=== PATIENT | female | born 1950 | race Caucasian/White ===

== ENCOUNTER → 2019-04-12 | Outpatient (CLI) | payer MEDICARE, OTHER ==
--- NOTE | 2019-04-12 16:10 | RAD ---
Examination: 1. Right diagnostic mammogram 2. Right targeted breast ultrasound. INDICATION: 68-year-old woman recalled from screening for right breast calcifications. COMPARISON: Bilateral screening mammogram of 03/28/2019 TECHNIQUE: Magnification views of the right breast in the CC projection were obtained along with a full-field right ML view and magnification MLO views of the right breast were obtained. Computer-aided detection was utilized. Targeted ultrasound of the upper inner quadrant right breast was subsequently pursued. FINDINGS: Right mammogram: The right breast is heterogeneously dense. Additional views of the right breast including magnification views confirm the presence of fine linear branching pleomorphic calcifications in the upper inner quadrant right breast spanning a 2.2 cm craniocaudal and 2.8 cm mediolateral extent and extending at least 4 cm anteroposterior. These are highly suggestive of malignancy. Biopsy is indicated. However, additional imaging by targeted right breast ultrasound is required to assess for lymphadenopathy and for any associated solid masses obscured by the heterogeneously dense breast parenchyma. Right breast ultrasound: Targeted ultrasound of the upper inner quadrant right breast identified vague hypoechoic antiparallel 13 mm mass at the right 2:00 position 5 cm from the nipple extending close to the chest wall, best illustrated on image 13 of series 1. This is suspicious and biopsy is indicated. This can be performed with either stereotactic mammographic imaging guidance or with ultrasound. Ultrasound guidance is suggested, targeting the sonographic mass that potentially represents an invasive tumor associated with the suspicious calcifications that almost certainly represent high-grade DCIS. IMPRESSION: Upper inner quadrant right breast calcifications are highly suggestive of malignancy, and are associated with a hypoechoic 12 mm mass at the right 2:00 position 5 cm from the nipple that is also suspicious for malignancy. Biopsy is recommended. Our departmental staff will assist with communicating findings and recommendations to the patient and her referring provider and with scheduling follow-up. BI-RADS Category 5: Highly suggestive of malignancy. Recommend right breast biopsy, preferably with ultrasound guidance. BI-RADS 5 -- highly suggestive of malignancy
== END ==
LOC: MAMMO 14:07
PROVIDERS: ATTEND Family Medicine
DX: R92.1 Mammographic calcification found on diagnostic imaging of breast (principal); R59.1 Generalized enlarged lymph nodes; R92.2 Inconclusive mammogram
CPT/HCPCS: 76641; 77065

== ENCOUNTER → 2020-04-17 | Outpatient (CLI) | payer MEDICARE, OTHER ==
--- NOTE | 2020-04-17 14:24 | RAD ---
EXAM: Bilateral screening mammogram. HISTORY: 69-year-old female presents for screening mammography. 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 TECHNIQUE: Full-field digital craniocaudal and mediolateral oblique views of both breasts are obtaine d for evaluation. Computer aided detection was applied. COMPARISON: 04/12/2019 and 05/01/2019 BREAST PARENCHYMAL DENSITY: Level D - Extremely dense. FINDINGS: There has been slight interval increase in heterogeneous coarse calcifications within the 3 :00 position of the right breast at mid depth. There is a biopsy clip within this location. There is stable suspected retraction of the right nipple. There are few punctate benign calcifications within the left breast. There is no convincing architectural distortion. IMPRESSION: 1. Slight increase in heterogeneous coarse calcifications in the 3:00 position of the right breast at site of prior benign biopsy. Note is made that the pathology findings are not clearly concordant wit h the sonographic appearance of this region demonstrated on the sonograms performed 04/12/2019 and 04/30. Therefore, repeat sonography is recommended. 2. BI-RADS Category 0: Incomplete. Additional imaging needed. Sonographic imaging of the right breast targeted to the site of prior biopsy is recommended. If your mammogram demonstrates that you have dense breast tissue, which could hide abnormalities, and if you have other risk factors for breast cancer that have been identified, you might benefit from s upplemental screening tests that may be suggested by your ordering physician. Dense breast tissue, i n and of itself, is a relatively common condition. This information is not provided to cause undue c oncern, but rather to raise your awareness and to promote discussion with your physician regarding th e presence of other risk factors, in addition to dense breast tissue. A report of your mammography re sults will be sent to you and your physician. You should contact your physician if you have any ques tions or concerns regarding this report. Mammography is a sensitive method for finding small breast cancers, but it does not detect them all a nd is not a substitute for careful clinical examination. A negative mammogram does not negate a clin ically suspicious finding and should not result in delay in biopsying a clinically suspicious abnorma lity. PQRS compliance statement - Patient information was entered into a reminder system with a target due date for the next mammogram. "Our facility is accredited by the [employer] Mammography [employer]." Electronically signed by: Neeta Crowe MD (04/17/2020 2:22 PM) [id number]
== END ==
LOC: MAMMO 10:21
PROVIDERS: ATTEND Family Medicine
DX: Z12.31 Encounter for screening mammogram for malignant neoplasm of breast (principal)
CPT/HCPCS: 77067

== ENCOUNTER → 2020-04-24 | Outpatient (CLI) | payer MEDICARE, OTHER ==
--- NOTE | 2020-04-24 15:54 | RAD ---
Examination: Limited right breast ultrasound. INDICATION: 69-year-old woman recalled from screening for calcifications in the posterior medial righ t breast, previously biopsied a year ago with benign pathology (nodular and confluent dense stromal s clerosis with focal chronic inflammation and coarse calcifications). On directed questioning, patient denies any history of previous breast trauma. COMPARISON: Screening mammogram of 04/05/2019, right diagnostic mammogram and breast ultrasound of 04/11, ultrasound-guided right breast core needle biopsy images of 05/01/2019 and the post procedure m ammogram of that same day, and the bilateral screening mammogram of 04/17/2020. TECHNIQUE: Grayscale and color Doppler imaging of the right breast in the posterior medial breast was performed, along with sonographic survey of the right axilla. FINDINGS: At the right 3:00 position approximately 4 cm from the nipple, a 1.7 cm hypoechoic irregular mass is identified that correlates with the breast tissue that was biopsied in the past year. The biopsy clip is not readily identified. No right axillary adenopathy on sonographic survey. Comparing the most recent screening mammogram findings with the mammograms from a year ago shows inte rval progression in coarsening of the coarse heterogeneous calcifications grouped in the middle third upper inner quadrant right breast. More these calcifications appear thick and michelle like, more closely approaching the appearance of benign secretory calcifications. However there are additional finer, i rregular calcifications that remain mildly suspicious. In discussion with the interpreting pathologist, the sampled calcifications in the tissue specimen fr om the biopsy of 05/01/2019 appear to obliterate ductal lumen with periductal fibrosis and likely refl ect a ductal process. This is to be expected from the branching calcifications identified on mammogra phy and may be concordant. However, the finer calcifications within the area of mammographic interest have not confidently been sampled by ultrasound-guided needle biopsy. These finer calcifications rem ain suspicious and should be considered for additional sampling, although the index of suspicion for malignancy has significantly dropped from the initial diagnostic workup that led to a biopsy recommen dation a year ago. Biopsy may be pursued either surgically or with stereotactic core needle biopsy us ing a large gauge vacuum-assisted device. IMPRESSION: Suspicious medial right breast mass, likely reflecting the presence of coarse heterogeneous calcifica tions recalled from recent screening mammogram. Recommend a surgical consultation for discussion of o ptions for additional tissue sampling to confirm a benign etiology. BI-RADS Category 4 Findings suspicious for malignancy Surgical consult recommended Findings and recommendations telephoned to the ordering physician's office where Carmen accepted the tel ephone report on behalf of Dr. Neeta Corona at approximately 3:00 PM on 04/24/2020 Electronically signed by: Neetu Goode MD (04/24/2020 3:52 PM) [id number]
== END ==
LOC: US 13:00
PROVIDERS: ATTEND Family Medicine
DX: R92.2 Inconclusive mammogram (principal)
CPT/HCPCS: 76641